=== PATIENT | male | born 1960 | race Caucasian/White ===

== ENCOUNTER → 2019-01-26 | Outpatient (CLI) | payer OTHER ==
[2019-01-26 15:35] LABS: ALBUMIN 3.9 g/dL (3.4-5.0); ALBUMIN/GLOBULIN RATIO 1.1 (1.0-1.7); CALCIUM 9.3 mg/dL (8.5-10.1); CREATININE 1.2 mg/dL (0.7-1.3); POTASSIUM 4.2 mmol/L (3.5-5.1); TOTAL BILIRUBIN 0.4 mg/dL (0.2-1.0); TOTAL PROTEIN 7.3 g/dL (6.4-8.2)
[2019-01-26 15:36] LABS: BASO % 1 % (0-3); EOS # 0.2 x10^3/uL (0.0-0.7); EOS % 2 % (0-3); HEMATOCRIT 48.4 % (39.0-53.0); HEMOGLOBIN 16.6 g/dL (13.0-17.5); LYMPH # 2.2 x10^3/uL (1.0-4.8); LYMPH % 27 % (24-48); MEAN CORPUSCULAR HEMOGLOBIN 31 pg (25-35); MEAN CORPUSCULAR HGB CONC 34 g/dL (31-37); MEAN CORPUSCULAR VOLUME 91 fL (79-100); MONO # 0.9 x10^3/uL (0.0-1.1); MONO % 11 % (0-9); NEUT # 4.7 x10^3uL (1.8-7.7); NEUT % 59 % (31-73); PLATELET COUNT 211 x10^3/uL (140-400); RED BLOOD COUNT 5.34 x10^6/uL (4.30-5.70); RED CELL DISTRIBUTION WIDTH 13.6 % (11.5-14.5)
== END | disposition home or self-care (01) ==
LOC: LAB 14:25
PROVIDERS: ATTEND General Practice
DX: Z12.5 Encounter for screening for malignant neoplasm of prostate (principal)
CPT/HCPCS: 36415; 80053; 80061; 82306; 84153; 85025; G0103

== ENCOUNTER 2019-07-21 17:48 | Emergency (ER) | payer OTHER ==
[~2019-07-21] VITALS: Ht 185.4 cm; Wt 90.7 kg
--- NOTE | 2019-07-21 17:53 | ED.ADGEN ---
Adult General Chief Complaint Chief Complaint ".. I was cutting my toe nails the other day.. and got a little deep on this Lt lst toe..and it has gotten infected..." HPI HPI Patient is a 59 year old male who presents with above hx and complaints of infection of left first toe. Patient has cellulitis of left first toe and small abscess/paronychia. Patient denies any history immunosuppression. Recent travel to [facility]. Patient is not remember his last tetanus. Patient denies any history of diabetes. Patient denies any history of specific ill contacts. Patient is normally healthy. Review of Systems Review of Systems Constitutional: Denies fever or chills [] Eyes: Denies change in visual acuity, redness, or eye pain [] HENT: Denies nasal congestion or sore throat [] Respiratory: Denies cough or shortness of breath [] Cardiovascular: No additional information not addressed in HPI [] GI: Denies abdominal pain, nausea, vomiting, bloody stools or diarrhea [] : Denies dysuria or hematuria [] Musculoskeletal: Denies back pain or joint pain [] Integument: Complaints of left first toe infection Neurologic: Denies headache, focal weakness or sensory changes [] Endocrine: Denies polyuria or polydipsia [] All other systems were reviewed and found to be within normal limits, except as documented in this note. Family History Family History Noncontributory Current Medications Current Medications Current Medications Medications (Trade) Dose Ordered Sig/Maxwell Start Time Stop Time Status Last Admin Dose Admin Diphtheria/ Tetanus/Acell Pertussis (Boostrix) 0.5 ml ONCE ONCE 07/21/19 18:15 07/21/19 18:16 DC 07/21/19 18:13 0.5 ML Trimethoprim/ Sulfamethoxazole (Bactrim Ds) 1 tab 1X ONCE 07/21/19 18:15 07/21/19 18:16 DC 07/21/19 18:11 1 TAB Allergies Allergies Allergies Coded Allergies Type Severity Reaction Last Updated Verified No Known Drug Allergies 07/21/19 No Physical Exam Physical Exam Constitutional: Well developed, well nourished, moderate acute distress, non- toxic appearance. [] HENT: Normocephalic, atraumatic, bilateral external ears normal, oropharynx moist, no oral exudates, nose normal. [] Eyes: PERRLA, EOMI, conjunctiva normal, no discharge. [] Neck: Normal range of motion, no tenderness, supple, no stridor. [] Cardiovascular:Heart rate regular rhythm, no murmur [] Lungs & Thorax: Bilateral breath sounds clear to auscultation [] Abdomen: Bowel sounds normal, soft, no tenderness, no masses, no pulsatile masses. [] Skin: Warm, dry, no erythema, no rash. [] Back: No tenderness, no CVA tenderness. [] Extremities: No tenderness, no cyanosis, no clubbing, ROM intact, no edema. []Except Findings in left first toe Neurologic: Alert and oriented X 3, normal motor function, normal sensory function, no focal deficits noted. [] Psychologic: Affect anxious, judgement normal, mood normal. [] Current Patient Data Vital Signs Vital Signs Date Time Temp Pulse Resp B/P (MAP) Pulse Ox O2 Delivery O2 Flow Rate FiO2 07/21/19 18:20 85 20 133/86 (102) 96 Room Air 07/21/19 17:55 98.3 EKG EKG [] Radiology/Procedures Radiology/Procedures [] Course & Med Decision Making Course & Med Decision Making Pertinent Labs and Imaging studies reviewed. (See chart for details) Suture note-incision and drainage-left first toe abscess cleaned with Betadine. An stick with 11 blade with drainage of some green pus. To apply Polysporin 4 times a day. Patient to soak toe in warm salt water or Epsom salts 4 times a day. Take Bactrim DS twice day. Patient follow-up primary care. Patient take Tylenol and ibuprofen for pain. Patient to wear only White cotton Socks. Patient return if any concerns. [] Final Impression Final Impression 1. Lt. lst Toe[]- cellulitis/abscess-paronychia Dragon Disclaimer Dragon Disclaimer This electronic medical record was generated, in whole or in part, using a voice recognition dictation system. Dragon Disclaimer This chart was dictated in whole or in part using Voice Recognition software in a busy, high-work load, and often noisy Emergency Department environment. It may contain unintended and wholly unrecognized errors or omissions. IZAIAH PERES MD Jul 21, 2019 17:53
[2019-07-21] MEDS ORDERED: SULF1TAB24 PO (18:02)
[2019-07-21] MEDS ORDERED: HYDR-1179 PO (18:02)
[2019-07-21] MEDS ORDERED: SMZ/TMP 800/160MG TABLET. PO ONE (18:15)
[2019-07-21] MEDS ORDERED: DIPHTH,PERTUSS(ACELL),TET TOX 0.5 ML DISP.SYRIN. VAX IM ONE (18:15)
[2019-07-21 18:20] VITALS: BP 133/86
== END 2019-07-21 18:25 | disposition home or self-care (01) ==
LOC: ER 17:48
DX: L03.032 Cellulitis of left toe (principal)
CPT/HCPCS: 10060; 90471; 90715; 99283-25

== ENCOUNTER → 2019-12-25 | Outpatient (CLI) | payer OTHER ==
[~2019-12-25] MED LIST: HYDR-1179 PO; SULF1TAB24 PO
[2019-12-25 12:59] LABS: BASO % 1 % (0-3); EOS # 0.2 x10^3/uL (0.0-0.7); EOS % 3 % (0-3); HEMATOCRIT 46.3 % (39.0-53.0); HEMOGLOBIN 15.6 g/dL (13.0-17.5); LYMPH # 2.3 x10^3/uL (1.0-4.8); LYMPH % 35 % (24-48); MEAN CORPUSCULAR HEMOGLOBIN 31 pg (25-35); MEAN CORPUSCULAR HGB CONC 34 g/dL (31-37); MEAN CORPUSCULAR VOLUME 91 fL (79-100); MONO # 0.7 x10^3/uL (0.0-1.1); MONO % 11 % (0-9); NEUT # 3.4 x10^3uL (1.8-7.7); NEUT % 51 % (31-73); PLATELET COUNT 206 x10^3/uL (140-400); RED BLOOD COUNT 5.07 x10^6/uL (4.30-5.70); RED CELL DISTRIBUTION WIDTH 13.4 % (11.5-14.5); WHITE BLOOD COUNT 6.7 x10^3/uL (4.0-11.0)
[2019-12-25 13:14] LABS: ALBUMIN 4.1 g/dL (3.4-5.0); ALBUMIN/GLOBULIN RATIO 1.2 (1.0-1.7); ALK PHOS 62 U/L (46-116); ALT (SGPT) 9 U/L (16-63); ANION GAP 13 (6-14); AST (SGOT) < 5 U/L (15-37); BLOOD UREA NITROGEN 22 mg/dL (8-26); BUN/CREATININE RATIO 24 (6-20); CALCIUM 9.1 mg/dL (8.5-10.1); CARBON DIOXIDE 22 mmol/L (21-32); CHLORIDE 104 mmol/L (98-107); CREATININE 0.9 mg/dL (0.7-1.3); GFR 86.1; GLUCOSE 101 mg/dL (70-99); POTASSIUM 4.3 mmol/L (3.5-5.1); SODIUM 139 mmol/L (136-145); TOTAL BILIRUBIN 0.4 mg/dL (0.2-1.0); TOTAL PROTEIN 7.5 g/dL (6.4-8.2)
[2019-12-25 14:04] LABS: BACTERIA,URINE 0 /HPF (0-FEW); BILIRUBIN,URINE NEG (NEG); CLARITY,URINE CLEAR; COLOR,URINE YELLOW; GLUCOSE,URINE NEG (NEG); NITRITE,URINE NEG (NEG); RBC,URINE 0 /HPF (0-2); SQUAMOUS EPITHELIAL CELL,UR OCC /LPF; UROBILINOGEN,URINE 0.2 mg/dL (0.2 mg/dL); WBC,URINE RARE /HPF (0-4)
[2019-12-26 19:13] LABS: FREE T4 1.05 ng/dL (0.76-1.46); THYROID STIM HORMONE (TSH) 3.056 uIU/mL (0.358-3.740)
[2019-12-27 05:12] LABS: FREE PSA/PSA RATIO 28.6 % (.); PSA FREE 0.2 ng/mL; PSA TOTAL 0.7 ng/mL (0.0-4.0)
== END | disposition home or self-care (01) ==
LOC: LAB 11:42
PROVIDERS: ATTEND Family Medicine
DX: M17.11 Unilateral primary osteoarthritis, right knee (principal); I45.19 Other right bundle-branch block; E78.01 Familial hypercholesterolemia; E03.9 Hypothyroidism, unspecified; Z84.89 Family history of other specified conditions
CPT/HCPCS: 36415; 80053; 80061; 81001; 84153; 84154; 84439; 84443; 85025

== ENCOUNTER 2020-08-29 13:58 | Emergency (ER) | payer OTHER ==
[~2020-08-29] VITALS: Ht 185.4 cm; Wt 91.0 kg
[2020-08-29 14:11] VITALS: BP 135/89
[2020-08-29] MEDS ORDERED: BACITRACIN ZINC TOPICAL OINT PACKET. TP ONE (14:30)
--- NOTE | 2020-08-29 14:32 | PHYS DOC ---
Past History Past Medical History: No Pertinent History (ISAAC WATTS APRN) Past Surgical History: No Surgical History (ISAAC WATTS APRN) Alcohol Use: None Drug Use: None (ISAAC WATTS APRN) Adult General Chief Complaint Chief Complaint: ANIMAL BITE HPI HPI Patient is a 60-year-old male patient presenting to the ED today with dog bite to the left hand. Patient got bit by a neighbor's dog. Patient does not know the vaccination status of the dog but reports he is up-to-date with his tetanus which was administered last year in this hospital. Patient is right-handed. (ISAAC WATTS APRN) Review of Systems Review of Systems Constitutional: Denies fever or chills [] Musculoskeletal: Denies back pain or joint pain [] Integument: Reports dog bite to the left Neurologic: Denies headache, focal weakness or sensory changes [] All other systems were reviewed and found to be within normal limits, except as documented in this note. (ISAAC WATTS APRN) Current Medications Current Medications Current Medications Medications (Trade) Dose Ordered Sig/Maxwell Start Time Stop Time Status Last Admin Dose Admin Bacitracin (Bacitracin Topical Pkt) 1 pkt 1X ONCE 08/29/20 14:30 08/29/20 14:31 (ISAAC WATTS APRN) Allergies Allergies Allergies Coded Allergies Type Severity Reaction Last Updated Verified No Known Drug Allergies 08/29/20 No (ISAAC WATTS APRN) Physical Exam Physical Exam Constitutional: Well developed, well nourished, no acute distress, non-toxic appearance. [] Skin: Left lateral hand with dog bite approximately 3 cm long, there is no obvious tendon involvement bite is not deep into subcutaneous tissue. There is another superficial laceration along the left fourth and fifth metatarsal approximately 1 cm. There is no obvious tendon involvement. Patient able to flex and extend all the fingers on the left hand. Adequate radial, medial, ulnar sensation to the left hand. +2 left radial pulse. Cap refill less than 2 seconds in left fingers. Back: No tenderness, no CVA tenderness. [] Extremities: No tenderness, no cyanosis, no clubbing, ROM intact, no edema. [] Neurologic: Alert and oriented X 3, normal motor function, normal sensory function, no focal deficits noted. [] Psychologic: Affect normal, judgement normal, mood normal. [] (ISAAC WATTS APRN) Current Patient Data Vital Signs Vital Signs Date Time Temp Pulse Resp B/P (MAP) Pulse Ox O2 Delivery O2 Flow Rate FiO2 08/29/20 14:11 97.4 105 18 135/89 (104) 95 Room Air (ISAAC WATTS APRN) EKG EKG [] (ISAAC WATTS APRN) Radiology/Procedures Radiology/Procedures []PROCEDURE: HAND LEFT 3V EXAM: HAND LEFT 3V 08/29/2020 2:19 PM CLINICAL INDICATION:Dog bite pain COMPARISON:None TECHNIQUE:3 views of the left hand FINDINGS:No acute fracture. Alignment is normal. Mild degenerative joint disease of the triscaphe and first CMC joints. No radiopaque foreign body. IMPRESSION:No acute osseous abnormality or radiopaque foreign body. Electronically signed by: Sara Rhodes MD (08/29/2020 2:54 PM) [id number] DICTATED AND SIGNED BY: SARA RHODES MD DATE: 08/29/20 1454 CC: TANISHA CHOWDHURY MD; EDSJ; ISAAC WATTS APRN ~ (ISAAC WATTS APRN) Heart Score Risk Factors: Risk Factors: DM, Current or recent (<one month) smoker, HTN, HLP, family history of CAD, obesity. Risk Scores: Risk Factors: DM, Current or recent (<one month) smoker, HTN, HLP, family history of CAD, obesity. (ISAAC WATTS APRN) Course & Med Decision Making Course & Med Decision Making Pertinent Labs and Imaging studies reviewed. (See chart for details) This is a 60-year-old male patient presented to the ED today with dog bite to the left hand. Left hand x-rays interpreted by radiologist are negative for any acute findings. Tetanus is up-to-date. Discussed with patient management of dog bite including applying of Neosporin to the area twice a day monitoring it for infection. Discharged on Augmentin and provided return precautions. (ISAAC WATTS APRN) Dragon Disclaimer Dragon Disclaimer This electronic medical record was generated, in whole or in part, using a voice recognition dictation system. (ISAAC WATTS APRN) Dragon Disclaimer agreed with treatment plan (TERRENCE MARTIN DO) Departure Departure: Impression: Primary Impression: Dog bite of left hand Disposition: 01 DC HOME SELF CARE/HOMELESS Condition: STABLE Referrals: TANISHA CHOWDHURY MD (PCP) Patient Instructions: Animal Bite, [id number] Additional Instructions: You have a dog bite to the left hand. Please keep the area clean and dry. We recommend you wash the area once or twice a day with regular soap and water. Take the prescribed antibiotics until completed. Monitor the area for any signs of infection including but not limited to increased redness, warmth, yellow drainage from the area and return to the ED for your care. Follow-up with your own doctor in 1 to 2 weeks. Scripts Amoxicillin/Potassium Clav (AUGMENTIN 875-125 TABLET) 1 Each Tablet 1 TAB PO BID for 10 Days, #20 TAB 0 Refills Prov: ISAAC WATTS APRN 08/29/20 Problem Qualifiers Primary Impression: Dog bite of left hand Encounter type: initial encounter Qualified Codes: S61.452A - Open bite of left hand, initial encounter; W54.0XXA - Bitten by dog, initial encounter ISAAC WATTS APRN Aug 29, 2020 14:32 TERRENCE MARTIN DO Aug 29, 2020 15:16
--- NOTE | 2020-08-29 14:57 | RAD ---
EXAM: HAND LEFT 3V 08/29/2020 2:19 PM CLINICAL INDICATION:Dog bite pain COMPARISON:None TECHNIQUE:3 views of the left hand FINDINGS:No acute fracture. Alignment is normal. Mild degenerative joint disease of the triscaphe and first CMC joints. No radiopaque foreign body. IMPRESSION:No acute osseous abnormality or radiopaque foreign body. Electronically signed by: Sara Rhodes MD (08/29/2020 2:54 PM) [id number]
[2020-08-29] MEDS ORDERED: AMOX1TAB61 PO (14:59)
== END 2020-08-29 15:02 | disposition home or self-care (01) ==
LOC: ER 13:58
DX: S61.452A Open bite of left hand, initial encounter (principal); R20.2 Paresthesia of skin; W54.0XXA Bitten by dog, initial encounter; Y93.89 Activity, other specified; Y92.89 Other specified places as the place of occurrence of the external cause; Y99.8 Other external cause status
CPT/HCPCS: 73130; 99283

== ENCOUNTER → 2021-04-10 | Outpatient (CLI) | payer OTHER ==
[~2021-04-10] MED LIST changes: +AMOX1TAB61 PO
[2021-04-10 12:35] LABS: BASO % 1 % (0-3); EOS # 0.2 x10^3/uL (0.0-0.7); EOS % 3 % (0-3); HEMATOCRIT 45.6 % (39.0-53.0); HEMOGLOBIN 15.4 g/dL (13.0-17.5); LYMPH # 2.1 x10^3/uL (1.0-4.8); LYMPH % 34 % (24-48); MEAN CORPUSCULAR HEMOGLOBIN 32 pg (25-35); MEAN CORPUSCULAR HGB CONC 34 g/dL (31-37); MEAN CORPUSCULAR VOLUME 93 fL (79-100); MONO # 0.7 x10^3/uL (0.0-1.1); MONO % 11 % (0-9); NEUT # 3.3 x10^3uL (1.8-7.7); NEUT % 52 % (31-73); PLATELET COUNT 180 x10^3/uL (140-400); RED BLOOD COUNT 4.88 x10^6/uL (4.30-5.70); RED CELL DISTRIBUTION WIDTH 13.3 % (11.5-14.5); WHITE BLOOD COUNT 6.4 x10^3/uL (4.0-11.0)
[2021-04-10 13:43] LABS: ALBUMIN 4.3 g/dL (3.4-5.0); ALBUMIN/GLOBULIN RATIO 1.4 (1.0-1.7); CALCIUM 9.4 mg/dL (8.5-10.1); GFR 75.7; POTASSIUM 4.3 mmol/L (3.5-5.1); TOTAL BILIRUBIN 0.7 mg/dL (0.2-1.0); TOTAL PROTEIN 7.4 g/dL (6.4-8.2)
[2021-04-10 13:49] LABS: BACTERIA,URINE 0 /HPF (0-FEW); BILIRUBIN,URINE NEG (NEG); CLARITY,URINE CLEAR; COLOR,URINE YELLOW; GLUCOSE,URINE NEG (NEG); NITRITE,URINE NEG (NEG); RBC,URINE OCC /HPF (0-2); SQUAMOUS EPITHELIAL CELL,UR FEW /LPF; UROBILINOGEN,URINE 0.2 mg/dL (0.2 mg/dL); WBC,URINE 0 /HPF (0-4)
[2021-04-11 14:08] LABS: FREE PSA/PSA RATIO 28.6 % (.); PSA FREE 0.2 ng/mL; PSA TOTAL 0.7 ng/mL (0.0-4.0)
[2021-04-11 19:41] LABS: FREE T4 0.96 ng/dL (0.76-1.46); THYROID STIM HORMONE (TSH) 1.556 uIU/mL (0.358-3.740)
== END ==
LOC: LAB 10:47
PROVIDERS: ATTEND Family Medicine
DX: E78.01 Familial hypercholesterolemia (principal)
CPT/HCPCS: 36415; 80053; 80061; 81001; 84153; 84154; 84439; 84443; 85025